=== PATIENT | male | born 1980 | race African-American/Black ===

== ENCOUNTER 2018-08-26 10:13 | Observation (INO) | payer OTHER ==
[2018-08-26] VITALS (24 sets, daily range): BP systolic 124–175; BP diastolic 68–99; PULSE 70–98; RESP 12–22; Ht 185.4 cm; Wt 79.3 kg
[~2018-08-26] VITALS: Ht 185.4 cm; Wt 79.3 kg
[2018-08-26] MEDS ORDERED: KETOROLAC 30 MG INJ IM STA (10:44)
[2018-08-26] MEDS ORDERED: SOD CHLORIDE 0.9% 1,000 ML IV STA (11:12)
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
--- NOTE | 2018-08-26 16:02 | PREAC ---
Date/Time of Note Date/Time of Note DATE: 08/26/18 TIME: 16:01 Anesthesia Eval and Record Evaluation Time Pre-Procedure Interview DATE: 08/26/18 TIME: 16:01 Age 38 Sex male NPO: 8 hrs Preoperative diagnosis R shoulder dislocation Planned procedure R shoulder CRIF Past Medical History Past Medical History: None Surgery & Anesthesia Issues No known issue Meds Anticoagulation: No Beta Candy within 24 hr: No Reason Beta Candy not given: Pt. not on B-Candy No Active Prescriptions or Reported Meds Meds reviewed: Yes Allergies Coded Allergies: Penicillins (Verified Allergy, Severe, SWELLING, 08/26/18) PER PT Allergies Reviewed: Yes Labs/Studies Labs Reviewed: Reviewed by anesthesiologist Result Diagram: 08/26/18 1130 08/26/18 1130 Laboratory Tests 08/26/18 11:30 test: Negative Studies: ECG Pre-procedure Exam Last vitals Vital Signs Date Temp Pulse Resp B/P (MAP) Pulse Ox O2 O2 Flow FiO2 Time Delivery Rate 08/26/18 98.3 88 20 141/97 99 Room Air 15:45 (112) Airway: Adequate mouth opening, Adequate thyromental dist Mallampati: Mallampati II Teeth: Normal Lung: Normal Heart: Normal ASA Physical Status ASA physical status: 2 Emergency: None Planned Anesthetic General/MAC: Mask, ETT, LMA Pre-operative Attestations Prior to commencing anesthesia and surgery, the patient was re-evaluated, there was verification of: *The patient's identity *The results of appropriate recent lab work and preoperative vital signs *The above evaluation not changing prior to induction *Anesthetic plan, risk benefits, alternative and complications discussed with patient/family; questions answered; patient/family understands, accepts and wishes to proceed. SHAKIRA THOMAS Aug 26, 2018 16:02
[2018-08-26] MEDS ORDERED: ONDANSETRON 4 MG INJ IV PRN (16:30)
[2018-08-26] MEDS ORDERED: FENTAnyl 50 MCG/ML VIAL IV PRN ×2 (16:30)
[2018-08-26] MEDS ORDERED: HYDROmorphONE 1 MG/5 ML IV SYRINGE IV PRN ×3 (16:30)
[2018-08-26] MEDS ORDERED: MEPERIDINE 25 MG INJ IV PRN (16:30)
[2018-08-26] MEDS ORDERED: DIPHENHYDRAMINE 50 MG INJ IV PRN (16:30)
[2018-08-26] MEDS ORDERED: METOCLOPRAMIDE 10 MG INJ IV PRN (16:30)
[2018-08-26] MEDS ORDERED: ALBUTEROL 0.083% (NEB) 2.5 MG/3 ML AMP HHN PRN (16:30)
--- NOTE | 2018-08-26 16:54 | HPN ---
Date/Time of Note Date/Time of Note DATE: 08/26/18 TIME: 16:54 Interval H&P Admission Note Pt. seen H&P reviewed: No system changes DANIELA MARCUS MD Aug 26, 2018 16:54
--- NOTE | 2018-08-26 17:36 | SIPON ---
Date/Time of Note Date/Time of Note DATE: 08/26/18 TIME: 17:26 Operative Report Preoperative Diagnosis fracture -dislocation opf Rt. shoulder Postoperative Diagnosis same Operation/Procedure Performed manipulative reduction of fracture-dislocation of Rt. shoulder Surgeon see signature line fundraising assistant none Anesthesia: general Estimated blood loss: none Transfusion Required none Specimen none Grafts/Implants none Complications none DANIELA MARCUS MD Aug 26, 2018 17:36
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
--- NOTE | 2018-08-26 18:11 | OPR ---
DATE OF OPERATION: 08/26/2018 PREOPERATIVE DIAGNOSIS: Fracture dislocation of the right shoulder. POSTOPERATIVE DIAGNOSIS: Fracture dislocation of the right shoulder. PROCEDURE PERFORMED: Closed manipulative reduction of the fracture dislocation of the right shoulder . ANESTHESIA: General anesthesia. SURGEON: Can Leija MD PROCEDURE AND FINDINGS: Under general anesthesia, the patient was placed in supine position upon the operating table. With the patient under full anesthesia with good relaxation, closed manipulative r eduction of the right shoulder was carried out by exerting gentle distal longitudinal traction on the right shoulder with the countertraction applied with the bed sheet placed around the axilla. Manipu lative reduction was carried out under the fluoroscopy and after achieving satisfactory traction, gen tle rotatory motion was applied inducing the reduction at the glenohumeral joint. After the reductio n was achieved by the usual typical clunking sensation, the right shoulder was examined with the fluo roscope in Y view and AP view and it was noted that the reduction was satisfactory without too much p roblem. The patient was then immobilized examination at this time revealed a satisfactory alig nment of the glenohumeral joint in a reduced position and the avulsed fragment of the greater tubercl e was also reduced in an acceptable position. The right upper extremity then was immobilized in a sl ing. The patient tolerated the entire procedure very well and was sent to the recovery room in good condit ion. Dictated By: CAN RIVERA/ESHA Conf#: [id number] DID#: [id number]
[2018-08-26] MEDS: HYDROCODONE/APAP (5/325) TAB PO PRN (20:57)
[2018-08-27 00:08] VITALS: BP 138/69; PULSE 88; RESP 20
[2018-08-27] MEDS: HYDROCODONE/APAP (5/325) TAB PO PRN ×4 (02:58→22:01)
[2018-08-27 03:30] VITALS: BP 156/93; PULSE 92; RESP 18
--- NOTE | 2018-08-27 07:33 | PAC ---
Date/Time of Note Date/Time of Note DATE: 08/27/18 TIME: 07:33 Post-Anesthesia Notes Post-Anesthesia Note Last documented vital signs Vital Signs Date Temp Pulse Resp B/P (MAP) Pulse Ox O2 O2 Flow FiO2 Time Delivery Rate 08/27/18 98.4 92 18 156/93 96 Room Air 03:30 (114) Activity: WNL Respiratory function: WNL Cardiovascular function: WNL Mental status: Baseline Pain reasonably controlled: Yes Hydration appropriate: Yes Nausea/Vomiting absent: Yes SHAKIRA THOMAS Aug 27, 2018 07:33
[2018-08-27 08:31] VITALS: BP 138/95; PULSE 85; RESP 18
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
[2018-08-27] MEDS ORDERED: ACETAMINOPHEN 325 MG TAB PO PRN (13:00)
[2018-08-27] MEDS ORDERED: ONDANSETRON 4 MG INJ IV PRN (13:00)
--- NOTE | 2018-08-27 13:01 | PN ---
Date/Time of Note Date/Time of Note DATE: 08/27/18 TIME: 12:59 Assessment/Plan VTE Prophylaxis Risk score (from Nsg)>0 risk: 1 SCD applied (from Nsg): Yes Pharmacological prophylaxis: other Lines/Catheters IV Catheter Type (from Nrsg): Saline Lock Urinary Cath still in place: No Assessment/Plan Hospital Course S: Patient in sling, still having some shoulder pain but improved since ye . O: VS - see below PE: Gen: Lying in bed, no acute distress, right sling in place HEENT: Superficial small abrasion to the right lateral orbital soft tissue, pupils equal round reactive to light, no bony deformity noted over the face or orbits, no cervical spine deformity or tenderness Resp: Clear to auscultation bilaterally Cardio: Regular rate and rhythm, no murmurs Abd: Soft, non tender, non distended. Normal bowel sounds Skin: No petechiae or rashes. Positive hematoma and ecchymosis to the right shoulder Back: No midline or flank tenderness Ext: No cyanosis, or edema. Sling in place, earlier patient has a large soft tissue contusion hematoma to the anterior right shoulder and limited range of motion at the shoulder. Neur: No focal deficits Assessment and plan: 30-year-old male status post right shoulder injury with dislocation fracture noted, status post closed manipulative reduction of the fracture dislocation of the right shoulder. #Right shoulder dislocation/fracture: Again status post operative repair postop day #1 -Continue pain control medications, PT, sling use, follow postoperative recommendations from orthopedic surgery team # DVT ppx -SCDs Result Diagram: 08/26/18 1130 08/26/18 1130 Exam/Review of Systems Exam Vitals Vital Signs Date Temp Pulse Resp B/P (MAP) Pulse Ox O2 O2 Flow FiO2 Time Delivery Rate 08/27/18 98.0 85 18 138/95 95 Room Air 08:31 (109) Intake and Output 08/26/18 08/26/18 08/27/18 1515:00 23:00 07:00 IntakeIntake Total 840 ml 680 ml OutputOutput Total 700 ml BalanceBalance 840 ml -20 ml Medications Medication Current Medications Acetaminophen/ Hydrocodone Bitart ([place] (5/325)) 2 tab Q3H PRN PO PAIN LEVEL 6-10 Last administered on 08/27/18at 10:28; Admin Dose 2 TAB; Start 08/26/18 at 17:30 YAMIA HAWK Aug 27, 2018 13:01
--- NOTE | 2018-08-27 13:29 | PN ---
DATE: 08/27/2018 First postop day. Post-reduction x-ray shows satisfactory alignment of the glenohumeral joint of the right shoulder along with the satisfactory alignment of the avulsion fracture involving the greater tubercle. The patient was again advised to keep his right upper extremity in a sling at least for 6 w eeks in order to reduce the possibility of the recurrent dislocation and also for the healing of the greater tubercle. Okay to be discharged from [facility] along with the instructions of further foll owup as an outpatient with ortho. Dictated By: CAN RIVERA/ESHA Conf#: [id number] DID#: [id number]
[2018-08-27 14:13] VITALS: BP 141/89; PULSE 75; RESP 18
[2018-08-27 19:30] VITALS: BP 154/97; PULSE 87; RESP 20
[2018-08-28 02:31] VITALS: BP 157/99; PULSE 85; RESP 20
[2018-08-28] MEDS: HYDROCODONE/APAP (5/325) TAB PO PRN ×2 (04:23→10:22)
[2018-08-28 07:19] VITALS: BP 150/94; PULSE 85; RESP 18
--- NOTE | 2018-08-28 09:23 | PDOCDIS ---
Discharge Instructions CONDITION Awuds3Dy Patient Condition: [id number] Stable ACTIVITY: [id number] Activity Restrictions: Skign8s Slowly Increase Activity Rest between Activity Avoid heavy lifting FOLLOW UP/APPOINTMENTS Follow-up Plan Please wear your sling as indicated by orthopedic team, take your medications as prescribed. See your doctor in the clinic in 1 week. YAIMA HAWK Aug 28, 2018 09:23
[2018-08-28] MEDS ORDERED: HYDR-3601 PO (09:24)
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
[2018-08-28] MEDS ORDERED: DOCUSATE SODIUM 100 MG CAP PO ONE (11:30)
== END 2018-08-28 13:45 | disposition home or self-care (01) ==
LOC: E/R 10:13 → MS1 17:27
PROVIDERS: ADMIT Orthopaedic Surgery; ATTEND Hospitalist
DX: S42.251A Displaced fracture of greater tuberosity of right humerus, initial encounter for closed fracture (principal); Y04.0XXA Assault by unarmed brawl or fight, initial encounter
CPT/HCPCS: 23665; 36415; 71045; 73030; 73060; 73200; 80048; 85025; 85610; 85730; 96372; J1885; J2175; J2405; J7030; Z7500; Z7502; Z7512; Z7610; G0378